=== PATIENT | female | born 1970 | race African-American/Black ===

== ENCOUNTER 2019-06-10 10:32 | Day surgery (SDC) | payer OTHER ==
[2019-06-08 16:16] VITALS: BMI 20.3
[2019-06-10 11:06] VITALS: TEMP 98.5
[2019-06-10] MEDS ORDERED: PROPOFOL 20 ML ONE (11:07)
[2019-06-10 13:16] VITALS: BP 115/77; PULSE 66
--- NOTE | 2019-06-15 11:05 | PATH ---
Surgical Pathology Report Patient Name: RADHA GRAYSON [facility]. Rec. #: [id number] /Age/Gender: 1970 (Age: 48) / F Account: [id number] Location: [facility] Taken: 06/10/2019 Received: 06/10/2019 Reported: 06/15/2019 Physicians: Lucía Marcano M.D. Specimen(s) Received A: SECOND PORTION OF DUODENUM B: ANTRUM C: GE JUNCTION D: MID ESOPHAGUS Clinical History Abdominal pain Postoperative diagnosis: Gastritis, esophagitis, rule out johana, gastric erosions Final Diagnosis A. SECOND PORTION DUODENUM, BIOPSY: DUODENAL MUCOSA WITH NO PATHOLOGIC FINDINGS. B. GASTRIC ANTRUM, BIOPSY: MILD CHRONIC GASTRITIS. IMMUNOSTAIN IS NEGATIVE FOR H. PYLORI ORGANISMS. C. GE JUNCTION, BIOPSY: GASTRIC (CARDIA-TYPE) MUCOSA SHOWING MODERATE CHRONIC INFLAMMATION. NEGATIVE FOR INTESTINAL METAPLASIA. D. MID ESOPHAGUS, BIOPSY: ESOPHAGEAL (SQUAMOUS) MUCOSA SHOWING MILD ACUTE ESOPHAGITIS. PAS STAIN IS NEGATIVE FOR FUNGAL ORGANISMS. Electronically Signed Elizabeth Correa M.D. Gross Description A. Received in formalin, labeled "biopsy second portion of duodenum" is a perez, irregular portion of soft tissue measuring 0.3 cm. in greatest dimension. The specimen is submitted in toto in one cassette. B. Received in formalin, labeled "biopsy gastric antrum" is a perez, irregular portion of soft tissue measuring 0.4 cm. in greatest dimension. The specimen is submitted in toto in one cassette. C. Received in formalin, labeled "biopsy GE junction" is a perez, irregular portion of soft tissue measuring 0.3 cm. in greatest dimension. The specimen is submitted in toto in one cassette. D. Received in formalin, labeled "biopsy mid esophagus" is a perez, irregular portion of soft tissue measuring 0.5 cm. in greatest dimension. The specimen is submitted in toto in one cassette. 06/11/2019 saudi06/11/2019
== END 2019-06-10 13:20 | disposition home or self-care (01) ==
LOC: FASU-ENDO 10:32
PROVIDERS: ATTEND Internal Medicine Gastroenterology
PROC: 0DB68ZX Excision of Stomach, Via Natural or Artificial Opening Endoscopic, Diagnostic (ICD-10-PCS; 2019-06-10)
PROC: 0DB28ZX Excision of Middle Esophagus, Via Natural or Artificial Opening Endoscopic, Diagnostic (ICD-10-PCS; 2019-06-10)
PROC: 0DB48ZX Excision of Esophagogastric Junction, Via Natural or Artificial Opening Endoscopic, Diagnostic (ICD-10-PCS; 2019-06-10)
PROC: 0DB98ZX Excision of Duodenum, Via Natural or Artificial Opening Endoscopic, Diagnostic (ICD-10-PCS; principal; 2019-06-10 12:29)
DX: K29.50 Unspecified chronic gastritis without bleeding (principal); K20.8 Other esophagitis; R10.13 Epigastric pain
CPT/HCPCS: 84703; 88305-TC; 88312-TC; 88342-TC

== ENCOUNTER 2019-07-29 09:56 | Day surgery (SDC) | payer OTHER ==
[2019-07-27 15:18] VITALS: BMI 20.3
[2019-07-29 11:52] VITALS: BP 117/60; TEMP 97.8
[2019-07-29 11:54] VITALS: PULSE 75
== END 2019-07-29 11:54 | disposition home or self-care (01) ==
LOC: FASU 09:56
PROVIDERS: ATTEND Internal Medicine Gastroenterology
PROC: 0DJD8ZZ Inspection of Lower Intestinal Tract, Via Natural or Artificial Opening Endoscopic (ICD-10-PCS; principal; 2019-07-29 11:04)
DX: K57.30 Diverticulosis of large intestine without perforation or abscess without bleeding (principal); K64.1 Second degree hemorrhoids; R10.13 Epigastric pain; R10.9 Unspecified abdominal pain
CPT/HCPCS: 84703